=== PATIENT | female | born 1990 | race Caucasian/White ===

== ENCOUNTER 2017-06-08 02:25 | Inpatient (IN) | payer BC ==
[2017-06-08] MEDS ORDERED: OXYTOCIN 10000 MU/ML SOL IM PRN (07:27)
[2017-06-08] MEDS ORDERED: CARBOPROST 250 MCG/ML SOL IM PRN (07:27)
[2017-06-08] MEDS ORDERED: FENTANYL 100MCG/2ML SOL IV PRN (07:27)
[2017-06-08] MEDS ORDERED: LACTATED RINGERS 1,000 ML IV PRN (07:27)
[2017-06-08] MEDS ORDERED: SODIUM CHLORIDE 0.9% FLUSH 10 ML SOL IV PRN (07:27)
[2017-06-08] MEDS ORDERED: METHYLERGONOVINE MALEATE 0.2 MG/ML SOL IM PRN (07:27)
[2017-06-08] MEDS ORDERED: MEPIVACAINE HCL 1% MPF 30 ML SOL INFIL PRN (07:27)
[2017-06-08] MEDS: SODIUM CHLORIDE 0.9% FLUSH 10 ML SOL IV SCH ×2 (08:40→16:28)
[2017-06-08 10:07] LABS: BASOPHILS % (AUTO) 1 % (0-3); EOSINOPHILS % (AUTO) 2 % (0-9); HEMATOCRIT 35 % (35-47); MEAN CORPUSCULAR VOLUME 92 fL (81-99); MONOCYTES % (AUTO) 5.4 % (0-12); NEUTROPHILS % (AUTO) 74.9 % (37-80)
[2017-06-08] MEDS ORDERED: SODIUM CHLORIDE 0.9% 500 ML 500 ML IV ONE (12:34)
[2017-06-08] MEDS ORDERED: TERBUTALINE SULFATE 1 MG/ML SOL SC PRN (13:24)
[2017-06-08] MEDS ORDERED: LACTATED RINGERS 1,000 ML IV SCH ×2 (13:30→16:00)
[2017-06-08] MEDS ORDERED: OXYTOCIN 10000 MU/ML 20,000 MU in LACTATED RINGERS 1,000 ML IV SCH (13:30)
[2017-06-08] MEDS ORDERED: OXYTOCIN 10000 MU/ML SOL ONE (13:52)
[2017-06-08] MEDS ORDERED: LACTATED RINGERS 1,000 ML ONE (13:53)
[2017-06-08] MEDS ORDERED: LABETALOL HYDROCHLORIDE 5 MG/ML SOL IV ONE (15:56)
[2017-06-08] MEDS ORDERED: NALBUPHINE HCL 20 MG/ML SOL IV PRN (15:58)
[2017-06-08] MEDS ORDERED: NALOXONE HYDROCHLORIDE 0.4 MG/ML SOL IV PRN (15:58)
[2017-06-08] MEDS ORDERED: EPHEDRINE SULFATE 50 MG/ML SOL IV PRN (15:58)
[2017-06-08] MEDS ORDERED: DIPHENHYDRAMINE 50 MG/ML SOL IV PRN (15:58)
[2017-06-08] MEDS: LACTATED RINGERS 1,000 ML IV SCH ×2 (16:10→17:30)
[2017-06-08] MEDS ORDERED: FENTANYL 250 MCG/ 5ML SOL ONE (16:28)
[2017-06-08] MEDS ORDERED: ROPIVACAINE HYDROCHLORIDE 5 MG/ML SOL ONE (16:29)
[2017-06-08] MEDS ORDERED: LIDOCAINE HCL 2% MPF SOL ONE (16:29)
[2017-06-08] MEDS ORDERED: METHYLERGONOVINE MALEATE 0.2 MG TAB PO PRN (22:27)
[2017-06-08] MEDS ORDERED: WITCH HAZEL 1 EA PAD TOP PRN (22:27)
[2017-06-08] MEDS ORDERED: TEMAZEPAM 15MG 15 MG CAP PO PRN (22:27)
[2017-06-08] MEDS ORDERED: BENZOCAINE/MENTHOL 1 SPR TOP PRN (22:27)
[2017-06-08] MEDS ORDERED: APAP/HYDROCODONE 325/5 TAB PO PRN (22:27)
[2017-06-08] MEDS ORDERED: FLEET ENEMA PR PRN (22:27)
[2017-06-08] MEDS ORDERED: BISACODYL 10 MG SUP PR PRN (22:27)
[2017-06-09] MEDS ORDERED: ALUMINUM/MAGNESIUM 30 ML SUS PO PRN (02:38)
[2017-06-09] MEDS ORDERED: RANITIDINE HCL 150 MG TAB PO SCH (09:00)
[2017-06-09] MEDS: IBUPROFEN 600 MG TAB PO PRN ×2 (09:25→22:11)
[2017-06-09] MEDS: DOCUSATE SODIUM 100 MG SGL PO SCH ×2 (09:25→22:11)
[2017-06-09 12:35] VITALS: RESP 20
[2017-06-09] MEDS: FAMOTIDINE 20 MG TAB PO SCH ×2 (12:36→22:11)
[2017-06-10 06:39] VITALS: BP 117/84; PULSE 81; TEMP 97.4; O2SAT 97
[2017-06-10] MEDS ORDERED: FAMOTIDINE 20 MG TAB ONE (09:09)
[2017-06-10] MEDS: DOCUSATE SODIUM 100 MG SGL PO SCH (09:38)
[2017-06-10] MEDS: FAMOTIDINE 20 MG TAB PO SCH (09:38)
[2017-06-10] MEDS ORDERED: INFLUENZA VIRUS VACCINE 0.5 ML SUS IM ONE ×2 (09:41→10:28)
== END 2017-06-10 14:05 | disposition home or self-care (01) | DRG 560 ==
LOC: INTOOBSV 02:25 → OBSVTOIN 02:25 → OB 02:25 → UNDOADMOB 02:25
PROVIDERS: ADMIT Family Medicine; ATTEND Family Medicine
PROC: 10E0XZZ Delivery of Products of Conception, External Approach (ICD-10-PCS; principal; 2017-06-08)
PROC: 0KQM0ZZ Repair Perineum Muscle, Open Approach (ICD-10-PCS; 2017-06-08)
DX: O42.02 Full-term premature rupture of membranes, onset of labor within 24 hours of rupture (principal); O70.1 Second degree perineal laceration during delivery; Z3A.39 39 weeks gestation of pregnancy; Z37.0 Single live birth
CPT/HCPCS: 36415; 84112; 85018; 85025; 90686; J0670; J2590; J2795; J3010; J3105; G0008

== ENCOUNTER 2019-04-10 09:35 | Inpatient (IN) | payer BC ==
[2019-04-10] MEDS ORDERED: CARBOPROST 250 MCG/ML SOL IM PRN (09:53)
[2019-04-10] MEDS ORDERED: NALOXONE HYDROCHLORIDE 0.4 MG/ML SOL IV PRN (09:53)
[2019-04-10] MEDS ORDERED: METHYLERGONOVINE MALEATE 0.2 MG/ML SOL IM PRN (09:53)
[2019-04-10] MEDS ORDERED: FENTANYL 100MCG/2ML SOL IV PRN (09:53)
[2019-04-10] MEDS ORDERED: LACTATED RINGERS 1,000 ML IV PRN (09:53)
[2019-04-10] MEDS ORDERED: SODIUM CHLORIDE 0.9% FLUSH 10 ML SOL IV PRN (09:53)
[2019-04-10] MEDS ORDERED: DIPHENHYDRAMINE 50 MG/ML SOL IV PRN (09:53)
[2019-04-10] MEDS ORDERED: MEPIVACAINE HCL 1% MPF 30 ML/VIAL SOL INFIL PRN (09:53)
[2019-04-10] MEDS ORDERED: OXYTOCIN 10000 MU/ML SOL IM PRN (09:53)
[2019-04-10] MEDS ORDERED: EPHEDRINE SULFATE 50 MG/ML SOL IV PRN (09:53)
[2019-04-10] MEDS ORDERED: NALBUPHINE HCL 20 MG/ML SOL IV PRN (09:53)
[2019-04-10] MEDS ORDERED: LACTATED RINGERS 1,000 ML IV SCH (10:00)
[2019-04-10 10:06] LABS: BASOPHILS % (AUTO) 1 % (0-3); EOSINOPHILS % (AUTO) 1 % (0-9); HEMATOCRIT 43 % (35-47); HEMOGLOBIN 14.2 gm/dl (12.0-15.5); LYMPHOCYTES % (AUTO) 30.6 % (10-50); MEAN CORPUSCULAR HEMOGLOBIN 32.8 pg (27.0-32.0); MEAN CORPUSCULAR HGB CONC 33.3 gm/dl (32.0-36.0); MEAN CORPUSCULAR VOLUME 98 fL (81-99); MONOCYTES % (AUTO) 6.2 % (0-12); NEUTROPHILS % (AUTO) 61.4 % (37-80)
[2019-04-10] MEDS: SODIUM CHLORIDE 0.9% FLUSH 10 ML SOL IV SCH ×2 (10:14→19:43)
[2019-04-10] MEDS: LACTATED RINGERS 1,000 ML IV SCH ×2 (10:14→11:02)
[2019-04-10 10:50] LABS: ALBUMIN 2.1 gm/dl (3.4-5.0); BILIRUBIN,TOTAL 0.2 mg/dl (0.2-1.0); CALCIUM 8.8 mg/dl (8.5-10.1); CARBON DIOXIDE 22.9 mEq/L (21-32); CREATININE 0.95 mg/dl (0.60-1.00); TOTAL PROTEIN 6.5 gm/dl (6.4-8.2)
[2019-04-10] MEDS ORDERED: LIDOCAINE HCL 2% MPF 10 ML SOL ONE (10:52)
[2019-04-10] MEDS ORDERED: FENTANYL 250 MCG/ 5ML SOL ONE (10:52)
[2019-04-10] MEDS ORDERED: ROPIVACAINE HYDROCHLORIDE 5 MG/ML SOL ONE (10:53)
[2019-04-10] MEDS ORDERED: LIDOCAINE 1% W/EPI MPF 30 ML SOL ONE ×2 (10:53→13:38)
[2019-04-10 12:31] LABS: APPEARANCE,URINE Clear; BILIRUBIN,URINE NEGATIVE (NEGATIVE); COLOR,URINE Yellow; GLUCOSE, URINE (UA) NEGATIVE (NEGATIVE); KETONES,URINE NEGATIVE (NEGATIVE); LEUKOCYTE ESTERASE ,URINE NEGATIVE (NEGATIVE); NITRATE,URINE NEGATIVE (NEGATIVE); OCCULT BLOOD,URINE TRACE LYSED (NEG-TRACE); UROBILINOGEN,URINE 0.2 (0.2-1.0 EU)
[2019-04-10 12:38] LABS: BACTERIA RARE (< 1+); CRYSTALS NEGATIVE (0-3 AVE/HPF); RBC,URINE 0-2 (0-3AV/HPF); WBC,URINE 0-2 (0-5AV/HPF)
[2019-04-10] MEDS ORDERED: MAGNESIUM SULFATE 5 GM/10 ML SOL IV PRN (13:29)
[2019-04-10] MEDS ORDERED: CALCIUM GLUCONATE 10% 100 MG/ML SOL IV PRN (13:29)
[2019-04-10 13:59] LABS: MAGNESIUM 1.9 mg/dl (1.8-2.4); URIC ACID 5.5 mg/dl (2.6-7.2)
[2019-04-10] MEDS: MAGNESIUM SULFATE 20GM(PREMIX) 20 GM/500 ML SOL IV ONE ×2 (14:30→21:57)
[2019-04-10] MEDS ORDERED: METHYLERGONOVINE MALEATE 0.2 MG TAB PO PRN (20:05)
[2019-04-10] MEDS ORDERED: BISACODYL 10 MG SUP PR PRN (20:05)
[2019-04-10] MEDS ORDERED: FLEET ENEMA PR PRN (20:05)
[2019-04-10] MEDS ORDERED: TEMAZEPAM 15MG 15 MG CAP PO PRN (20:05)
[2019-04-10] MEDS ORDERED: BENZOCAINE/MENTHOL 1 SPR TOP PRN (20:05)
[2019-04-10] MEDS ORDERED: WITCH HAZEL 1 EA PAD TOP PRN (20:05)
[2019-04-10 20:57] LABS: HEMATOCRIT 41 % (35-47); HEMOGLOBIN 13.6 gm/dl (12.0-15.5); MEAN CORPUSCULAR HEMOGLOBIN 32.9 pg (27.0-32.0); MEAN CORPUSCULAR HGB CONC 33.5 gm/dl (32.0-36.0); MEAN CORPUSCULAR VOLUME 98 fL (81-99)
[2019-04-10] MEDS ORDERED: CARBOPROST 250 MCG/ML SOL IM ONE (20:58)
[2019-04-10 21:07] LABS: ALBUMIN 2.1 gm/dl (3.4-5.0); BILIRUBIN,TOTAL 0.2 mg/dl (0.2-1.0); CALCIUM 8.2 mg/dl (8.5-10.1); CREATININE 0.99 mg/dl (0.60-1.00); MAGNESIUM 6.3 mg/dl (1.8-2.4)
[2019-04-10 21:24] LABS: BAND NEUTROPHILS % (MANUAL) 5 %; BASOPHILS % (MANUAL) 0 % (0-3); EOSINOPHILS % (MANUAL) 0 % (0-9); LYMPHOCYTES % (MANUAL) 8 % (10-50); MONOCYTES % (MANUAL) 1 % (0-12); NEUTROPHILS % (MANUAL) 86 % (37-80); NORMAL RBCS PRESENT
[2019-04-10] MEDS: FOLIC ACID 1 MG TAB PO SCH (21:53)
[2019-04-10] MEDS: DOCUSATE SODIUM 100 MG SGL PO SCH (21:53)
[2019-04-10] MEDS: MULTIVITAMIN2 1 EA TAB PO SCH (21:53)
[2019-04-10] MEDS ORDERED: MAGNESIUM SULFATE 20GM(PREMIX) 20 GM/500 ML SOL IV ONE (21:56)
[2019-04-10] MEDS: IBUPROFEN 600 MG TAB PO PRN (23:00)
[2019-04-11] MEDS: APAP/HYDROCODONE 1 EACH TABLET PO PRN ×2 (03:02→09:09)
[2019-04-11] MEDS: SODIUM CHLORIDE 0.9% FLUSH 10 ML SOL IV SCH ×4 (03:05→23:55)
[2019-04-11 03:53] LABS: HEMATOCRIT 40 % (35-47); HEMOGLOBIN 13.4 gm/dl (12.0-15.5); MEAN CORPUSCULAR HEMOGLOBIN 32.8 pg (27.0-32.0); MEAN CORPUSCULAR HGB CONC 33.6 gm/dl (32.0-36.0); MEAN CORPUSCULAR VOLUME 98 fL (81-99)
[2019-04-11 03:58] LABS: ALBUMIN 1.9 gm/dl (3.4-5.0); BILIRUBIN,TOTAL 0.2 mg/dl (0.2-1.0); CALCIUM 7.3 mg/dl (8.5-10.1); CREATININE 0.96 mg/dl (0.60-1.00); MAGNESIUM 7.6 mg/dl (1.8-2.4)
[2019-04-11 04:02] LABS: CARBON DIOXIDE 26.2 mEq/L (21-32)
[2019-04-11 04:09] LABS: BAND NEUTROPHILS % (MANUAL) 0 %; BASOPHILS % (MANUAL) 0 % (0-3); EOSINOPHILS % (MANUAL) 0 % (0-9); LYMPHOCYTES % (MANUAL) 9 % (10-50); MONOCYTES % (MANUAL) 1 % (0-12); NEUTROPHILS % (MANUAL) 90 % (37-80)
[2019-04-11 04:10] LABS: NORMAL RBCS PRESENT
[2019-04-11] MEDS: IBUPROFEN 600 MG TAB PO PRN ×3 (06:59→21:13)
[2019-04-11] MEDS ORDERED: MAGNESIUM SULFATE 20GM(PREMIX) 20 GM/500 ML SOL IV ONE ×2 (08:11→08:53)
[2019-04-11] MEDS: DOCUSATE SODIUM 100 MG SGL PO SCH ×2 (09:09→21:13)
[2019-04-11 09:12] LABS: BASOPHILS % (AUTO) 0 % (0-3); EOSINOPHILS % (AUTO) 0 % (0-9); HEMATOCRIT 37 % (35-47); HEMOGLOBIN 12.3 gm/dl (12.0-15.5); LYMPHOCYTES % (AUTO) 17.1 % (10-50); MEAN CORPUSCULAR HEMOGLOBIN 32.6 pg (27.0-32.0); MEAN CORPUSCULAR HGB CONC 33.2 gm/dl (32.0-36.0); MEAN CORPUSCULAR VOLUME 98 fL (81-99); MONOCYTES % (AUTO) 3.8 % (0-12); NEUTROPHILS % (AUTO) 78.6 % (37-80)
[2019-04-11 09:30] LABS: ALBUMIN 1.9 gm/dl (3.4-5.0); BILIRUBIN,TOTAL 0.2 mg/dl (0.2-1.0); CALCIUM 6.6 mg/dl (8.5-10.1); CARBON DIOXIDE 28.1 mEq/L (21-32); CREATININE 0.99 mg/dl (0.60-1.00); MAGNESIUM 8.3 mg/dl (1.8-2.4); TOTAL PROTEIN 5.6 gm/dl (6.4-8.2)
[2019-04-11] MEDS ORDERED: DIPHENHYDRAMINE 25 MG CAP PO PRN (13:05)
[2019-04-11 15:25] LABS: BASOPHILS % (AUTO) 1 % (0-3); EOSINOPHILS % (AUTO) 0 % (0-9); HEMATOCRIT 38 % (35-47); HEMOGLOBIN 12.7 gm/dl (12.0-15.5); LYMPHOCYTES % (AUTO) 21.2 % (10-50); MEAN CORPUSCULAR HEMOGLOBIN 32.5 pg (27.0-32.0); MONOCYTES % (AUTO) 4.2 % (0-12); NEUTROPHILS % (AUTO) 73.8 % (37-80)
[2019-04-11 15:26] LABS: MEAN CORPUSCULAR VOLUME 99 fL (81-99)
[2019-04-11 15:38] LABS: ALBUMIN 1.8 gm/dl (3.4-5.0); BILIRUBIN,TOTAL 0.1 mg/dl (0.2-1.0); CREATININE 1.02 mg/dl (0.60-1.00); MAGNESIUM 6.6 mg/dl (1.8-2.4); TOTAL PROTEIN 5.7 gm/dl (6.4-8.2)
[2019-04-11 15:49] LABS: CARBON DIOXIDE 27.2 mEq/L (21-32)
[2019-04-11 16:01] LABS: CALCIUM 6.2 mg/dl (8.5-10.1)
[2019-04-11 18:28] LABS: ALBUMIN 1.8 gm/dl (3.4-5.0); BILIRUBIN,TOTAL 0.1 mg/dl (0.2-1.0); CARBON DIOXIDE 29.6 mEq/L (21-32); CREATININE 1.04 mg/dl (0.60-1.00); TOTAL PROTEIN 5.5 gm/dl (6.4-8.2)
[2019-04-11] MEDS ORDERED: CALCIUM GLUCONATE IV ONE (19:00)
[2019-04-11] MEDS ORDERED: SODIUM CHLORIDE 0.9% IV ONE (19:00)
[2019-04-11] MEDS: FOLIC ACID 1 MG TAB PO SCH (21:13)
[2019-04-11] MEDS: MULTIVITAMIN2 1 EA TAB PO SCH (21:13)
[2019-04-11 22:23] LABS: ALBUMIN 1.7 gm/dl (3.4-5.0); BILIRUBIN,TOTAL 0.1 mg/dl (0.2-1.0); CALCIUM 6.7 mg/dl (8.5-10.1); CREATININE 1.1 mg/dl (0.60-1.00); TOTAL PROTEIN 5.2 gm/dl (6.4-8.2)
[2019-04-11 22:28] LABS: CARBON DIOXIDE 26.7 mEq/L (21-32)
[2019-04-11] MEDS ORDERED: CALCIUM GLUCONATE 100 MG/ML SOL IV SCH (23:00)
[2019-04-11] MEDS ORDERED: CALCIUM GLUCONATE 10% 100 MG/ML SOL IV ONE (23:31)
[2019-04-12] MEDS: IBUPROFEN 600 MG TAB PO PRN ×3 (03:10→18:19)
[2019-04-12] MEDS: SODIUM CHLORIDE 0.9% FLUSH 10 ML SOL IV SCH ×3 (03:35→18:51)
[2019-04-12 07:17] LABS: ALBUMIN 1.8 gm/dl (3.4-5.0); BILIRUBIN,TOTAL 0.2 mg/dl (0.2-1.0); CALCIUM 7.1 mg/dl (8.5-10.1); CARBON DIOXIDE 26.6 mEq/L (21-32); CREATININE 0.95 mg/dl (0.60-1.00); MAGNESIUM 2.9 mg/dl (1.8-2.4); TOTAL PROTEIN 5.4 gm/dl (6.4-8.2)
[2019-04-12] MEDS: DOCUSATE SODIUM 100 MG SGL PO SCH ×2 (09:10→20:23)
[2019-04-12] MEDS ORDERED: SODIUM CHLORIDE 0.9% IV ONE (09:23)
[2019-04-12] MEDS ORDERED: CALCIUM GLUCONATE IV ONE (09:23)
[2019-04-12] MEDS ORDERED: CALCIUM GLUCONATE 10% 100 MG/ML SOL IV ONE (09:34)
[2019-04-12 14:26] LABS: ALBUMIN 1.7 gm/dl (3.4-5.0); BILIRUBIN,TOTAL 0.2 mg/dl (0.2-1.0); CALCIUM 7.8 mg/dl (8.5-10.1); CARBON DIOXIDE 27.7 mEq/L (21-32); CREATININE 0.89 mg/dl (0.60-1.00); TOTAL PROTEIN 5.6 gm/dl (6.4-8.2)
[2019-04-12] MEDS ORDERED: IBUPROFEN 600 MG TAB ONE (18:18)
[2019-04-12 18:35] VITALS: O2SAT 97
[2019-04-12] MEDS: FOLIC ACID 1 MG TAB PO SCH (20:23)
[2019-04-12] MEDS: MULTIVITAMIN2 1 EA TAB PO SCH (20:23)
[2019-04-12 20:25] LABS: ALBUMIN 1.8 gm/dl (3.4-5.0); BILIRUBIN,TOTAL 0.2 mg/dl (0.2-1.0); CALCIUM 7.8 mg/dl (8.5-10.1); CARBON DIOXIDE 26.2 mEq/L (21-32); CREATININE 0.83 mg/dl (0.60-1.00); TOTAL PROTEIN 5.7 gm/dl (6.4-8.2)
[2019-04-12 21:06] VITALS: RESP 14
[2019-04-12] MEDS ORDERED: CALCIUM GLUCONATE 100 MG/ML SOL IV SCH (22:00)
[2019-04-13] MEDS: SODIUM CHLORIDE 0.9% FLUSH 10 ML SOL IV SCH ×2 (00:04→02:19)
[2019-04-13] MEDS: IBUPROFEN 600 MG TAB PO PRN (00:04)
[2019-04-13 07:02] LABS: ALBUMIN 1.9 gm/dl (3.4-5.0); BILIRUBIN,TOTAL 0.2 mg/dl (0.2-1.0); CARBON DIOXIDE 28.3 mEq/L (21-32); CREATININE 0.7 mg/dl (0.60-1.00); TOTAL PROTEIN 5.9 gm/dl (6.4-8.2)
[2019-04-13 07:32] VITALS: BP 137/88; PULSE 60; TEMP 97.8
[2019-04-13] MEDS: DOCUSATE SODIUM 100 MG SGL PO SCH (08:42)
[2019-04-13 10:18] LABS: APPEARANCE,URINE Clear; BILIRUBIN,URINE NEGATIVE (NEGATIVE); COLOR,URINE Yellow; GLUCOSE, URINE (UA) NEGATIVE (NEGATIVE); KETONES,URINE NEGATIVE (NEGATIVE); LEUKOCYTE ESTERASE ,URINE TRACE (NEGATIVE); NITRATE,URINE NEGATIVE (NEGATIVE); OCCULT BLOOD,URINE 2+ (NEG-TRACE); UROBILINOGEN,URINE 0.2 (0.2-1.0 EU)
[2019-04-13 10:51] LABS: BACTERIA TRACE (< 1+); CRYSTALS NEGATIVE (0-3 AVE/HPF)
[2019-04-13 21:35] LABS: *CREATININE URINE RANDOM 38.2 mg/dL; *PROTEIN URINE RANDOM 15.9 mg/dL (1.0-14.0)
== END 2019-04-13 09:00 | disposition home or self-care (01) | DRG 560 ==
LOC: OB 09:35 → EDSTATUS 04-29 09:33
PROVIDERS: ADMIT Family Medicine; ATTEND Family Medicine
PROC: 3E0337Z Introduction of Electrolytic and Water Balance Substance into Peripheral Vein, Percutaneous Approach (ICD-10-PCS; 2019-04-10)
PROC: 10E0XZZ Delivery of Products of Conception, External Approach (ICD-10-PCS; principal; 2019-04-11)
PROC: 0KQM0ZZ Repair Perineum Muscle, Open Approach (ICD-10-PCS; 2019-04-11)
DX: O80 Encounter for full-term uncomplicated delivery (principal); E88.09 Other disorders of plasma-protein metabolism, not elsewhere classified; O69.81X0 Labor and delivery complicated by cord around neck, without compression, not applicable or unspecified; R51 Headache; Z37.0 Single live birth; Z3A.40 40 weeks gestation of pregnancy; O14.93 Unspecified pre-eclampsia, third trimester; E83.51 Hypocalcemia
CPT/HCPCS: 36415; 59025; 80053; 81001; 83735; 84550; 85007; 85025; 85027; 87088; 93005; 94762; J0610; J0670; J2590; J2795; J3010; A9270-GY; J3490